=== PATIENT | male | born 1945 | race Caucasian/White ===

== ENCOUNTER → 2019-04-21 | Outpatient (CLI) | payer MEDICARE ==
[2019-04-21 12:16] LABS: HCT 41.1 % (39.0-53.0); MCH 30.6 pg (25.0-35.0); MCHC 34.1 g/dL (31.0-37.0); MCV 89.5 fL (80.0-100.0); Mean Platelet Volume 6.4; Platelet Count 279 k/uL (150-450); RBC 4.59 m/uL (4.30-5.90); RDW 12.7 % (11.5-15.5); WBC 5.3 k/uL (3.8-10.6)
== END | disposition home or self-care (01) ==
LOC: LABPAT 11:21
PROVIDERS: ATTEND Surgery
DX: Z01.812 Encounter for preprocedural laboratory examination (principal)
CPT/HCPCS: 36415; 85027

== ENCOUNTER 2019-04-23 07:01 | Day surgery (SDC) | payer MEDICARE ==
[2019-04-18 15:30] VITALS: BMI 23.6
[~2019-04-23 07:01] MED LIST: DEXAMETHASONE SOD PHOSPHATE 10 MG/ML 1 ML VIAL IV ONE; HEPARIN SODIUM,PORCINE 5,000 UNIT/ML 1 ML VIAL SQ ONE; MIDAZOLAM 2 MG/2 ML VIAL IV PRN
[2019-04-23] MEDS ORDERED: ONDANSETRON 4 MG/2 ML VIAL IVP STA (07:36)
[2019-04-23] MEDS: LACTATED RINGERS 1,000 ML IV SCH (07:37)
[2019-04-23] MEDS: LIDOCAINE 1% 20 ML VIAL (10MG/ML) FOR IV START INTRADERMA PRN ×2 (07:37→07:38)
[2019-04-23 07:54] LABS: Calcium 9.7 mg/dL (8.4-10.2); Potassium 4.1 mmol/L (3.5-5.1)
--- NOTE | 2019-04-23 07:58 | P.GSHP ---
History of Present Illness H&P Date: 04/23/19 Chief Complaint: Right inguinal hernia 73-year-old male with complaints of right groin discomfort. Patient had a previous da Toyin prostatectomy. See in the office with those complaints. On exam patient was found to have a small reducible right inguinal hernia and a possible small left inguinal hernia as well. No nausea or vomiting. Past Medical History Past Medical History: Cancer, Hyperlipidemia, Hypertension Additional Past Medical History / Comment(s): Hx Prostate cancer 2010. History of Any Multi-Drug Resistant Organisms: None Reported Past Surgical History: Back Surgery, Orthopedic Surgery, Prostate Surgery Additional Past Surgical History / Comment(s): Bilateral cataract surgery, decompressive back surgery, left knee athroscopy. Past Anesthesia/Blood Transfusion Reactions: Motion Sickness Past Psychological History: No Psychological Hx Reported Smoking Status: Never smoker Past Alcohol Use History: Occasional Past Drug Use History: None Reported - Past Family History Daughter(s) Family Medical History: Cancer Additional Family Medical History / Comment(s): Breast cancer. Sister(s) Family Medical History: Cancer Additional Family Medical History / Comment(s): Breast cancer. Medications and Allergies Home Medications Medication Instructions Recorded Confirmed Type Aspirin [Adult Low Dose Aspirin EC] 81 mg PO DAILY 04/18/19 04/18/19 History Atorvastatin [Lipitor] 10 mg PO QAM 04/18/19 04/23/19 History Garlic 1 each PO DAILY 04/18/19 04/18/19 History Metoprolol Tartrate 25 mg PO BID 04/18/19 04/18/19 History [place]-3 Fatty Acids/Fish Oil [Fish 1 each PO DAILY 04/18/19 04/18/19 History Oil 1,000 mg Softgel] Ubidecarenone [Co Q-10] 100 mg PO DAILY 04/18/19 04/18/19 History Valsartan/Hydrochlorothiazide 1 each PO QAM 04/18/19 04/18/19 History [Valsartan-Hctz 320-25 mg Tab] Allergies Allergy/AdvReac Type Severity Reaction Status Date / Time monosodium glutamate [MSG] Allergy Swelling Verified 04/18/19 16:01 Surgical - Exam Vital Signs Temp Pulse Resp BP Pulse Ox 97.8 F 62 16 155/72 100 04/23/19 07:21 04/23/19 07:21 04/23/19 07:21 04/23/19 07:21 04/23/19 07:21 Physical exam: General: Well-developed, well-nourished HEENT: Normocephalic, sclerae nonicteric Abdomen: Nontender, nondistended, small reducible right inguinal hernia, possible small left inguinal hernia Extremities: No edema Neuro: Alert and oriented Results - Labs 04/23/19 07:30 Abnormal Lab Results - Last 24 Hours (Table) 04/23/19 Range/Units 07:30 BUN 24 H (9-20) mg/dL Glucose 107 H (74-99) mg/dL Diabetes panel 04/23/19 Range/Units 07:30 Sodium 140 (137-145) mmol/L Potassium 4.1 (3.5-5.1) mmol/L Chloride 104 (98-107) mmol/L Carbon Dioxide 26 (22-30) mmol/L BUN 24 H (9-20) mg/dL Creatinine 1.21 (0.66-1.25) mg/dL Glucose 107 H (74-99) mg/dL Calcium 9.7 (8.4-10.2) mg/dL Calcium panel 04/23/19 Range/Units 07:30 Calcium 9.7 (8.4-10.2) mg/dL Pituitary panel 04/23/19 Range/Units 07:30 Sodium 140 (137-145) mmol/L Potassium 4.1 (3.5-5.1) mmol/L Chloride 104 (98-107) mmol/L Carbon Dioxide 26 (22-30) mmol/L BUN 24 H (9-20) mg/dL Creatinine 1.21 (0.66-1.25) mg/dL Glucose 107 H (74-99) mg/dL Calcium 9.7 (8.4-10.2) mg/dL Adrenal panel 04/23/19 Range/Units 07:30 Sodium 140 (137-145) mmol/L Potassium 4.1 (3.5-5.1) mmol/L Chloride 104 (98-107) mmol/L Carbon Dioxide 26 (22-30) mmol/L BUN 24 H (9-20) mg/dL Creatinine 1.21 (0.66-1.25) mg/dL Glucose 107 H (74-99) mg/dL Calcium 9.7 (8.4-10.2) mg/dL Assessment and Plan (1) Right inguinal hernia Narrative/Plan: Will proceed with the da Toyin assisted laparoscopic right inguinal hernia repair with mesh, possible bilateral. Increased risks related to the previous preperitoneal dissection reviewed and possible need for open repair discussed. Risks of bleeding, infection, recurrence, bladder and bowel injury, numbness, nerve injury, conversion to an open procedure were discussed with the patient. The patient understands and wishes to proceed. Current Visit: Yes Status: Acute Code(s): K40.90 - UNIL INGUINAL HERNIA, W/O OBST OR GANGR, NOT SPCF RECUR SNOMED Code(s): 586743428
[2019-04-23] MEDS ORDERED: fentaNYL (PF) 50 MCG/ML 2 ML AMP ONE (08:24)
[2019-04-23] MEDS ORDERED: NEOSTIGMINE 1 MG/ML 10 ML VIAL ONE (08:24)
[2019-04-23] MEDS ORDERED: PROPOFOL 10 MG/ML 20 ML VIAL IV ONE (08:24)
[2019-04-23] MEDS ORDERED: MIDAZOLAM 2 MG/2 ML VIAL ONE (08:24)
[2019-04-23] MEDS ORDERED: GLYCOPYRROLATE 0.2 MG/ML 2 ML VIAL ONE (08:24)
[2019-04-23] MEDS ORDERED: ePHEDrine SULFATE/0.9% NACL/PF 50 MG/5 ML SYRINGE IV ONE (08:24)
[2019-04-23] MEDS ORDERED: ROCURONIUM BROMIDE 10 MG/ML 10 ML VIAL IV ONE (08:24)
[2019-04-23] MEDS ORDERED: SUCCINYLCHOLINE CHLORIDE 100 MG/5 ML SYR IV ONE (08:24)
[2019-04-23] MEDS ORDERED: LIDOCAINE 1% INJ 10MG/ML (20 ML MDV) ONE (08:24)
[2019-04-23] MEDS ORDERED: BUPIVACAINE (PF) 0.25% 30 ML VIAL SQ ONE ×3 (08:30→09:03)
[2019-04-23 11:31] VITALS: TEMP 97.2
[2019-04-23] MEDS ORDERED: NALOXONE 0.4 MG/ML 1 ML VIAL IV PRN (11:38)
[2019-04-23] MEDS ORDERED: TAMSULOSIN 0.4 MG CAP.ER.24H PO STA (11:38)
[2019-04-23] MEDS ORDERED: Acetaminophen-Codeine 300-30mg TAB PO PRN (11:38)
[2019-04-23] MEDS: fentaNYL (PF) 50 MCG/ML 2 ML AMP IV PRN ×2 (11:40→11:43)
--- NOTE | 2019-04-23 11:42 | P.OP ---
Date of Procedure: 04/23/19 Procedure(s) Performed: PREOPERATIVE DIAGNOSIS: Bilateral inguinal hernia POSTOPERATIVE DIAGNOSIS: Same PROCEDURE: Laparoscopic repair bilateral inguinal hernia with the da Toyin robot assistance with mesh SURGEON: Wade EBL: Minimal ANESTHESIA: General COMPLICATIONS: None OPERATIVE PROCEDURE: Patient was placed in the operating table in the supine position. The patient was placed under general anesthesia. The abdomen was prepped and draped in usual sterile fashion. A small vertical supraumbilical in cision was made through the previous prostatectomy scar. The fascia was retracted anteriorly with Radha forceps. The Veress needle was inserted. The saline drop test was normal. Insufflation took place to 15 mmHg. A 5 mm trocar was placed into the peritoneal cavity. This was later switched to a 12 mm trocar. 2 additional 8 mm trochars were placed in the right upper quadrant and left upper quadrant under visualization. The robotic arms were then brought in and docked into place. The fenestrated bipolar was used in the left arm and the laparoscopic jayro was utilized in the right arm. A 30 12 mm scope was used in the up position. The peritoneal cavity was inspected. Patient was noted to have bilateral indirect inguinal hernias. Right side was larger than the left. The right side was first addressed. The peritoneum was incised in a horizontal fashion cephalad to the internal inguinal ring. Following that careful dissection of the preperitoneal space took place. This took place using both electrocautery, sharp dissection but primarily blunt dissection. Visualization of the pubic tubercle and Derick's ligament took place medially. Full dissection took place laterally as well. The hernia sac was fully dissected. The left side was then addressed in a similar fashion. The patient's pre- peroneal dissection was fairly routine laterally however as we approached the medial dissection plane both on the right side and the left side there was significant scarring related to the previous prostatectomy. Despite that we were able to fully reduce the indirect hernia sacs bilaterally. Once we had adequate space the 15 x 10 progrip mesh was advanced into the preperitoneal space and flattened out appropriately to cover all potential hernia sites bilaterally. No sutures were used. The peritoneal defect was then closed using a locking 2-0 VLok suture bilaterally. A tear in the peritoneum on the left side was closed using a short running 3-0 Vicryl stitch. A tear on the right side was larger and this was closed by incorporating the hernia sac into our peritoneal closure medially. The pneumoperitoneum was then evacuated. The fascia at the 12 mm site was closed using the Andre Lindo technique and an 0 Vicryl stitch. The skin of all 3 sites was closed using a 4-0 Monocryl stitch. Skin glue was then applied. DISPOSITION: Stable to recovery room
[2019-04-23] MEDS ORDERED: Acetaminophen-Codeine 300-30mg TAB PO ONE (14:00)
[2019-04-23 15:08] VITALS: BP 151/76; PULSE 68; RESP 16
== END 2019-04-23 16:02 | disposition home or self-care (01) ==
LOC: OR 07:01
PROVIDERS: ATTEND Surgery
DX: K40.20 Bilateral inguinal hernia, without obstruction or gangrene, not specified as recurrent (principal); E78.5 Hyperlipidemia, unspecified; I10 Essential (primary) hypertension; Z79.82 Long term (current) use of aspirin; Z85.46 Personal history of malignant neoplasm of prostate; Z98.42 Cataract extraction status, left eye; Z98.41 Cataract extraction status, right eye; Z80.3 Family history of malignant neoplasm of breast; Z79.899 Other long term (current) drug therapy; Z91.018 Allergy to other foods
CPT/HCPCS: 80048; 49650; C1781; J2250; J1644; J1100; J2710; J0690; J2405; J2001; J3010; J0330; J2704

== ENCOUNTER 2023-03-18 12:44 | Emergency (ER) | payer MEDICARE ==
[2023-03-18] MEDS ORDERED: KETOROLAC 15 MG/ML 1 ML VIAL IVP STA (13:11)
--- NOTE | 2023-03-18 14:00 | CT ---
EXAMINATION TYPE: CT cervical spine wo con DATE OF EXAM: 03/18/2023 COMPARISON: None HISTORY: Fell off ladder CT DLP: 408.[address] of the cervical spine was performed with bone and soft tissue window settings submitted . Coronal and sagittal reconstruction is obtained. There is normal alignment and prevertebral soft tissues. I do not see evidence for fracture or subluxation. No significant degenerative changes are present. The lung apices are clear IMPRESSION: No evidence for fracture or subluxation of the cervical spine.
--- NOTE | 2023-03-18 14:03 | CT ---
EXAMINATION TYPE: CT chest wo con DATE OF EXAM: 03/18/2023 COMPARISON: None HISTORY: Fell off ladder-left side chest/flank pain CT DLP: 363.[address] of the chest was performed with lung and mediastinal window settings submitted. The la ck of contrast limits evaluation of the vascular, mediastinal and parenchymal structures including th e upper abdomen. LUNGS: The lungs are clear and free of infiltrate. No atelectasis. No pulmonary nodule or mass is de tected. No pleural effusion. No CT evidence of interstitial lung disease. No pneumothorax present. No contusion. MEDIASTINUM/DEYSI: Thoracic aorta is of normal caliber with limited evaluation given lack of contrast . The heart is not enlarged. No evidence for mediastinal mass. No lymph nodes greater than 1cm. UPPER ABDOMEN: Small layering gallstones. Left renal cyst. OTHER: No significant other abnormality. IMPRESSION: 1. No traumatic injury to the chest.
--- NOTE | 2023-03-18 14:47 | ED ---
Fall HPI - General Chief Complaint: Fall Stated Complaint: FELL OFF LADDER ONTO BACK Time Seen by Provider: 03/18/23 12:52 Source: patient Mode of arrival: ambulatory - History of Present Illness Initial Comments: 77-year-old male presents to the emergency department after he fell off a ladder. States that he was trying to trim a tree when the ladder slipped and he fell off backwards onto his left flank. He states that he did hit his head however did not lose consciousness. No headaches or visual changes. No neck or midline back pain. Admits to some left lateral flank and chest pain. No shortness of breath. Denies abdominal pain. No changes in his bowel or bladder habits. Did not take anything for pain before coming in. He does not take any blood thinners. No other alleviating, precipitating or modifying factors - Related Data Home Medications Medication Instructions Recorded Confirmed Aspirin [Adult Low Dose Aspirin EC] 81 mg PO DAILY 04/18/19 04/18/19 Atorvastatin [Lipitor] 10 mg PO QAM 04/18/19 04/23/19 Garlic 1 each PO DAILY 04/18/19 04/18/19 Metoprolol Tartrate 25 mg PO BID 04/18/19 04/18/19 [place]-3 Fatty Acids/Fish Oil [Fish 1 each PO DAILY 04/18/19 04/18/19 Oil 1,000 mg Softgel] Ubidecarenone [Co Q-10] 100 mg PO DAILY 04/18/19 04/18/19 Valsartan/Hydrochlorothiazide 1 each PO QAM 04/18/19 04/18/19 [Valsartan-Hctz 320-25 mg Tab] Previous Rx's Medication Instructions Recorded Acetaminophen with Codeine 1 tab PO Q4H #10 tab 04/23/19 [Tylenol w/codeine #3] Allergies Allergy/AdvReac Type Severity Reaction Status Date / Time monosodium glutamate [MSG] Allergy Swelling Verified 03/18/23 12:49 Review of Systems ROS Statement: Those systems with pertinent positive or pertinent negative responses have been documented in the HPI. ROS Other: All systems not noted in ROS Statement are negative. Past Medical History Past Medical History: Cancer, Hyperlipidemia, Hypertension Additional Past Medical History / Comment(s): Hx Prostate cancer 2010. History of Any Multi-Drug Resistant Organisms: None Reported Past Surgical History: Back Surgery, Orthopedic Surgery, Prostate Surgery Additional Past Surgical History / Comment(s): Bilateral cataract surgery, decompressive back surgery, left knee athroscopy. Past Anesthesia/Blood Transfusion Reactions: Motion Sickness Past Psychological History: No Psychological Hx Reported Smoking Status: Former smoker Past Alcohol Use History: Occasional Past Drug Use History: None Reported - Past Family History Daughter(s) Family Medical History: Cancer Additional Family Medical History / Comment(s): Breast cancer. Sister(s) Family Medical History: Cancer Additional Family Medical History / Comment(s): Breast cancer. General Exam Limitations: no limitations General appearance: alert, in no apparent distress Head exam: Present: atraumatic, normocephalic, normal inspection Eye exam: Present: normal appearance, PERRL, EOMI. Absent: scleral icterus, conjunctival injection, periorbital swelling ENT exam: Present: normal exam, mucous membranes moist Neck exam: Present: normal inspection. Absent: tenderness, meningismus, lymphadenopathy Respiratory exam: Present: normal lung sounds bilaterally, chest wall tenderness (Left lateral/posterior chest wall. No step-offs appreciated. No crepitance). Absent: respiratory distress, wheezes, rales, rhonchi, stridor Cardiovascular Exam: Present: regular rate, normal rhythm, normal heart sounds. Absent: systolic murmur, diastolic murmur, rubs, gallop, clicks GI/Abdominal exam: Present: soft, normal bowel sounds. Absent: distended, tenderness, guarding, rebound, rigid Extremities exam: Present: normal inspection, full ROM, normal capillary refill. Absent: tenderness, pedal edema, joint swelling, calf tenderness Back exam: Present: normal inspection Neurological exam: Present: alert, oriented X3, CN II-XII intact Psychiatric exam: Present: normal affect, normal mood Skin exam: Present: warm, dry, intact, normal color. Absent: rash Course Vital Signs 03/18/23 03/18/23 12:46 15:30 Temperature 97 F L 98 F Pulse Rate 76 64 Respiratory 18 20 Rate Blood Pressure 179/84 164/69 O2 Sat by Pulse 100 95 Oximetry Medical Decision Making - Medical Decision Making Was pt. sent in by a medical professional or institution (, PA, DAMAGE INSIDE ADJUSTER, urgent care, hospital, or care home...) When possible be specific @ -No Did you speak to anyone other than the patient for history (EMS, parent, family, police, friend...)? What history was obtained from this source @ -Spoke with the patient's for the history Did you review nursing and triage notes (agree or disagree)? Why? @ -I reviewed and agree with nursing and triage notes Were old charts reviewed (outside hosp., previous admission, EMS record, old EKG, old radiological studies, urgent care reports/EKG's, care home records)? Report findings @ -No old charts were reviewed Differential Diagnosis (chest pain, altered mental status, abdominal pain women, abdominal pain men, vaginal bleeding, weakness, fever, dyspnea, syncope, headache, dizziness, GI bleed, back pain, seizure, CVA, palpatations, mental health, musculoskeletal)? @ -Differential Musculoskeletal Muscular strain, contusion, ligament sprain, fracture, arthritis, septic arthritis, bursitis, cellulitis, muscle spasm, nerve compression, DVT, arterial occlusion, herpes zoster, electrolyte abnormality, tumor.... This is not meant to be in all inclusive list EKG interpreted by me (3pts min.). @ -Not done X-rays interpreted by me (1pt min.). @ -None done CT interpreted by me (1pt min.). @ -Yes and demonstrates no acute fractures or traumatic injuries U/S interpreted by me (1pt. min.). @ -None done What testing was considered but not performed or refused? (CT, X-rays, U/S, labs)? Why? @ -None What meds were considered but not given or refused? Why? @ -None Did you discuss the management of the patient with other professionals (professionals i.e. , PA, DAMAGE INSIDE ADJUSTER, lab, RT, psych nurse, vp digital marketing social media and crm, process safety manager, teacher, [employer] plans staff officer, binder caser)? Give summary @ -No Was smoking cessation discussed for >3mins.? @ -No Was critical care preformed (if so, how long)? @ -No Were there social determinants of health that impacted care today? How? (Homelessness, low income, unemployed, alcoholism, drug addiction, transportation, low edu. Level, literacy, decrease access to med. care, prison, rehab)? @ -No Was there de-escalation of care discussed even if they declined (Discuss DNR or withdrawal of care, Hospice)? DNR status @ -No What co-morbidities impacted this encounter? (DM, HTN, Smoking, COPD, CAD, Cancer, CVA, ARF, Chemo, Hep., AIDS, mental health diagnosis, sleep apnea, morbid obesity)? @ -None Was patient admitted / discharged? Hospital course, mention meds given and route, prescriptions, significant lab abnormalities, going to OR and other pertinent info. @ -Upon arrival patient is placed into room 12. Thorough history and physical exam was performed. Patient is given 15 mg of Toradol. He does go for CT imaging of his cervical spine and chest. Imaging does not reveal any traumatic injury to the chest. Results discussed the patient. Did recommend alternating Motrin and Tylenol for pain control. Purchase Aspercreme patches in place to the site. Use a heating pad. Follow up with his primary care doctor and return for any new or worsening symptoms. Patient was agreeable to this plan and was discharged in stable condition Undiagnosed new problem with uncertain prognosis? @ -No Drug Therapy requiring intensive monitoring for toxicity (Heparin, Nitro, Insulin, Cardizem)? @ -No Were any procedures done? @ -No Diagnosis/symptom? @ -Acute posterior chest wall pain, status post fall from height Acute, or Chronic, or Acute on Chronic? @ -Acute Uncomplicated (without systemic symptoms) or Complicated (systemic symptoms)? @ -complicated Side effects of treatment? @ -No Exacerbation, Progression, or Severe Exacerbation? @ -No Poses a threat to life or bodily function? How? (Chest pain, [place], [place], pneumonia, PE, COPD, DKA, ARF, appy, cholecystitis, CVA, Diverticulitis, Homicidal, Mary Lou cidal, threat to staff... and all critical care pts) @ -No Disposition Clinical Impression: Fall, Left-sided chest wall pain Disposition: HOME SELF-CARE Condition: Stable Instructions (If sedation given, give patient instructions): Fall Prevention ( ED), Chest Wall Pain (ED) Additional Instructions: Please purchase Aspercreme patches and place one to the site for the next 12 hours. Use a heating pad also for the pain - use for 20 minutes at a time, 4-6 times per day. You may alternate taking Motrin and Tylenol every 4 hours. You should take 3 tablets of Motrin (200 mg each) per dose or 2 tablets of tylenol (325 mg each) per dose. Next dose of Tylenol should be at 5:30 pm. Follow up with your primary care doctor within one week and return for any new or worsening symptoms Is patient prescribed a controlled substance at d/c from ED?: No Referrals: Seamus Manriquez MD [Primary Care Provider] - 1-2 days Time of Disposition: 14:47
[2023-03-18 15:32] VITALS: BP 164/69; PULSE 64; RESP 20; TEMP 98
== END 2023-03-18 15:31 | disposition home or self-care (01) ==
LOC: EC 12:44
DX: R07.89 Other chest pain (principal); I10 Essential (primary) hypertension; E78.5 Hyperlipidemia, unspecified; Z79.82 Long term (current) use of aspirin; Z79.899 Other long term (current) drug therapy; Z91.018 Allergy to other foods; Z87.891 Personal history of nicotine dependence; W11.XXXA Fall on and from ladder, initial encounter; Y93.H2 Activity, gardening and landscaping
CPT/HCPCS: 72125; 71250; 99284; 96374; J1885